=== PATIENT | female | born 1980 | race Caucasian/White ===

== ENCOUNTER 2016-08-12 09:46 | Inpatient (IN) | payer SELFPAY ==
[~2016-08-12] VITALS: Ht 154.9 cm; Wt 81.2 kg
[2016-08-12] MEDS ORDERED: MORPHINE SULFATE 4 MG/ML CPJ (NOT FOR IM USE) IV STA ×2 (10:23→16:00)
[2016-08-12] MEDS ORDERED: ONDANSETRON HCL 4MG/2ML VIAL IV STA ×2 (10:23→16:00)
[2016-08-12] MEDS ORDERED: PANTOPRAZOLE SODIUM 40 MG/VIAL IV STA (10:23)
[2016-08-12] MEDS ORDERED: SODIUM CHLORIDE 0.9% 1,000 ML IV ONE ×2 (10:23→13:05)
[2016-08-12 11:43] LABS: BASOPHILS % 0.7 % (0.0-2.0); HEMOGLOBIN. 13.1 g/dL (12.0-16.0); LYMPHOCYTES % 12.5 % (20.0-50.0); MEAN CORPUSCULAR HEMOGLOBIN 29.1 pg (28.0-32.0); MEAN CORPUSCULAR VOLUME 86.9 fL (81.0-99.0); MEAN PLATELET VOLUME 7.2 fl (7.4-10.4); MONOCYTES % 6.4 % (2.0-8.0); NEUTROPHILS % 79.4 % (40.0-76.0); PLATELET 392 x1000/uL (130-400); RED BLOOD CELL COUNT 4.49 mill/uL (4.2-5.4)
[2016-08-12] MEDS ORDERED: KETOROLAC 30MG/ML VIAL IV ONE (11:45)
[2016-08-12 11:46] LABS: CLARITY URINE CLOUDY (CLEAR); COLOR URINE DARK YELLOW (YELLOW); GLUCOSE URINE NEGATIVE (NEGATIVE); KETONES URINE TRACE (NEGATIVE); LEUKOCYTE ESTERASE URINE 2+ (NEGATIVE); NITRITE URINE POSITIVE (NEGATIVE); OCCULT BLOOD URINE 3+ (NEGATIVE); PH URINE 5.5 (4.5-8.0); PROTEIN URINE 1+ (NEGATIVE); SPECIFIC GRAVITY URINE 1.034 (1.005-1.030)
[2016-08-12 11:51] LABS: INR 1.1; PROTHROMBIN TIME 11.4 sec
[2016-08-12 11:54] LABS: CARBON DIOXIDE 27 mEq/L (21-32); CHLORIDE 106 mEq/L (98-107)
[2016-08-12] MEDS ORDERED: CEFTRIAXONE 1 G PREMIX 50 ML IV ONE (12:15)
[2016-08-12] MEDS ORDERED: PIPERACILLIN/TAZ 3.375G PREMIX 50 ML IV ONE (13:15)
[2016-08-12] MEDS ORDERED: ONDANSETRON HCL 4MG/2ML VIAL IV ONE (14:45)
[2016-08-12] MEDS ORDERED: MORPHINE SULFATE 4 MG/ML CPJ (NOT FOR IM USE) IV ONE (14:45)
[2016-08-12] MEDS ORDERED: DOCUSATE SODIUM 100MG CAPSULE PO PRN (17:15)
[2016-08-12] MEDS ORDERED: LORAZEPAM 2MG/ML CPJ IV PRN (17:15)
[2016-08-12] MEDS ORDERED: CLONIDINE 0.1MG TABLET PO PRN (17:15)
[2016-08-12] MEDS ORDERED: IPRATROPIUM/ALBUTEROL 0.5-3(2.5)MG/3ML NEB INH PRN (17:15)
[2016-08-12] MEDS ORDERED: GUAIFENESIN 200MG/10ML SUGAR FREE UDC PO PRN (17:15)
[2016-08-12] MEDS ORDERED: NA PHOS,M-B/NA PHOS,DI-BA ENEMA 118ML PR PRN (17:15)
[2016-08-12] MEDS ORDERED: TRAMADOL 50MG TABLET PO PRN (17:15)
[2016-08-12] MEDS ORDERED: ONDANSETRON HCL 4MG/2ML VIAL IV PRN (17:15)
[2016-08-12] MEDS ORDERED: DIPHENHYDRAMINE 50MG/ML VIAL IV PRN (17:15)
[2016-08-12] MEDS ORDERED: ZOLPIDEM TARTRATE 5MG TABLET PO PRN (17:15)
[2016-08-12] MEDS ORDERED: MAGNESIUM/ALUMINUM HYDROXIDE/SIMETHICONE 30ML UDC PO PRN (17:15)
[2016-08-12 19:30] VITALS: BP 120/92
[2016-08-12 20:00] VITALS: BP 120/92
[2016-08-12] MEDS: MORPHINE SULFATE 2 MG/ML CPJ (NOT FOR IM USE) IV PRN (20:45)
[2016-08-12] MEDS: DEXT 5%/0.45% NACL 1000ML 1,000 ML IV SCH (21:12)
[2016-08-12] MEDS: PIPERACILLIN/TAZ 3.375G PREMIX 50 ML IV SCH (21:12)
[2016-08-13] VITALS: BP 116/88
[2016-08-13] MEDS: PIPERACILLIN/TAZ 3.375G PREMIX 50 ML IV SCH ×4 (02:08→22:01)
[2016-08-13] MEDS: MORPHINE SULFATE 2 MG/ML CPJ (NOT FOR IM USE) IV PRN ×2 (02:17→14:28)
[2016-08-13 04:00] VITALS: BP 111/75
[2016-08-13] MEDS: KETOROLAC 15MG/ML VIAL IV PRN (04:29)
[2016-08-13] MEDS ORDERED: FENTANYL CITRATE/PF 50MCG/ML 2ML VIAL IV PRN (06:45)
[2016-08-13] MEDS ORDERED: ONDANSETRON HCL 4MG/2ML VIAL IV PRN (06:45)
[2016-08-13] MEDS ORDERED: LIDOCAINE HCL 1% 20ML VIAL (Pyxis) INJ ONE (06:59)
[2016-08-13] MEDS ORDERED: PROPOFOL 200MG/20ML VIAL IV ONE (06:59)
[2016-08-13] MEDS ORDERED: SUCCINYLCHOLINE CHLORIDE 200MG/10ML VIAL IV ONE (06:59)
[2016-08-13] MEDS ORDERED: ROCURONIUM BROMIDE 10MG/ML VIAL 5ML IV ONE (06:59)
[2016-08-13] MEDS ORDERED: ONDANSETRON HCL 4MG/2ML VIAL ONE (07:00)
[2016-08-13] MEDS ORDERED: FENTANYL CITRATE/PF 50MCG/ML 2ML VIAL ONE ×2 (07:00→08:03)
[2016-08-13] MEDS ORDERED: METOCLOPRAMIDE HCL 10MG/2ML VIAL ONE (07:00)
[2016-08-13] MEDS ORDERED: MIDAZOLAM HCL 2 MG/2 ML VIAL ONE (07:00)
[2016-08-13] MEDS ORDERED: SKIN ADHESIVE 0.7 GM EA TOP ONE (07:02)
[2016-08-13] MEDS ORDERED: BUPIVACAINE HCL 0.5% (5MG/ML) 50ML ONE (07:03)
[2016-08-13] MEDS ORDERED: CEFAZOLIN SODIUM 1000MG/VIAL ONE (07:11)
[2016-08-13] MEDS ORDERED: SODIUM CHLORIDE 0.9% 10ML VIAL ONE (07:19)
[2016-08-13] MEDS ORDERED: MORPHINE SULFATE 4 MG/ML CPJ (NOT FOR IM USE) IV PRN (07:30)
[2016-08-13] MEDS ORDERED: HYDROCODONE/ACETAMINOPHEN 5/325MG TABLET PO PRN ×2 (07:30)
[2016-08-13] MEDS ORDERED: MORPHINE SULFATE 2 MG/ML CPJ (NOT FOR IM USE) IV PRN (07:30)
[2016-08-13] MEDS ORDERED: ACETAMINOPHEN 325MG TABLET PO PRN (07:30)
[2016-08-13] MEDS ORDERED: ALBUTEROL 90MCG/PUFF 17GM INHALER INH ONE (07:45)
[2016-08-13] MEDS ORDERED: LABETALOL HCL 5MG/ML VIAL 20ML IV ONE (08:05)
[2016-08-13] MEDS ORDERED: GLYCOPYRROLATE 0.2 MG/ML 2ML VIAL ONE (08:15)
[2016-08-13] MEDS ORDERED: NEOSTIGMINE METHYLSULFATE 1MG/ML 10 ML VIAL ONE (08:15)
[2016-08-13] MEDS: PANTOPRAZOLE SODIUM 40 MG/VIAL IV SCH (09:00)
[2016-08-13] MEDS: DEXT 5%/0.45% NACL KCL 20MEQ/L 1,000 ML IV SCH (09:00)
[2016-08-13] MEDS: HYDROMORPHONE HCL/PF 2MG/ML CPJ IV PRN ×2 (09:41→10:04)
[2016-08-13 12:00] VITALS: BP 122/91
[2016-08-13] MEDS: DEXT 5%/0.45% NACL 1000ML 1,000 ML IV SCH (13:09)
[2016-08-13] MEDS: SODIUM CHLORIDE 0.9% INJ 3ML FLUSH IVF SCH ×2 (14:26→22:01)
[2016-08-13 16:00] VITALS: BP 115/88
[2016-08-13] MEDS: ACETAMINOPHEN 325MG TABLET PO PRN (17:09)
[2016-08-13 20:00] VITALS: BP 127/88
[2016-08-14] VITALS: BP 114/82
[2016-08-14] MEDS: KETOROLAC 15MG/ML VIAL IV PRN (00:51)
[2016-08-14] MEDS: ACETAMINOPHEN 325MG TABLET PO PRN (00:52)
[2016-08-14] MEDS: PIPERACILLIN/TAZ 3.375G PREMIX 50 ML IV SCH ×2 (03:16→10:09)
[2016-08-14] MEDS: DEXT 5%/0.45% NACL KCL 20MEQ/L 1,000 ML IV SCH ×2 (03:16→08:33)
[2016-08-14 04:00] VITALS: BP 101/69
[2016-08-14] MEDS: SODIUM CHLORIDE 0.9% INJ 3ML FLUSH IVF SCH (06:45)
[2016-08-14] MEDS: PANTOPRAZOLE SODIUM 40 MG/VIAL IV SCH (10:05)
[2016-08-14 12:12] VITALS: BP 111/71
== END 2016-08-14 12:55 | disposition home or self-care (01) | DRG 263 ==
LOC: ER 10:23 → 6EST 16:48 → EDBEDREQSVC 16:49 → EDBEDREQ 16:49 → EDBEDREQTM 16:49 → ENRESERV 17:23
PROVIDERS: ADMIT Internal Medicine; ATTEND Internal Medicine
PROC: 0FT44ZZ Resection of Gallbladder, Percutaneous Endoscopic Approach (ICD-10-PCS; principal; 2016-08-13 07:30)
DX: K81.0 Acute cholecystitis (principal); E44.0 Moderate protein-calorie malnutrition; N10 Acute pyelonephritis; E66.9 Obesity, unspecified; Z68.33 Body mass index [BMI] 33.0-33.9, adult; Z71.3 Dietary counseling and surveillance
CPT/HCPCS: 36415; 71010; 73706; 74176; 76700; 80053; 81001; 83036; 83605; 83690; 84484; 85025; 85610; 87040; 87077; 87086; 87186; 88304; 93005; 96361; 96365; 96375; 99285; A4216; C9113; J0330; J0690; J0696; J1170; J1885; J2250; J2270; J2405; J2543; J2704; J2710; J2765; J3010; J3490; J7030